=== PATIENT | male | born 1970 | race Caucasian/White ===

== ENCOUNTER 2021-12-28 16:45 | Outpatient (RCR) | payer OTHER, SELFPAY ==
--- NOTE | 2021-11-09 16:00 | PT.OPPOC ---
Physical, Occupational & Speech Therapy At [facility] Current Diagnoses Dizziness and giddiness (11/09/21) Visit Care Team Role Provider Type Dean Alves DO Family Provider Non-Staff Primary Care Provider Specialty: Family Practice Address: [address] [place] [address], [id number] Email: Jonas John MD Attending Provider Physician Referring Provider Specialty: Ear, Nose, Throat Address: [address] [place] [address], [id number] Email: [email or web address] Plan Of Care PT-OP-T Assessment and Plan Start: 11/09/21 17:32 Freq: Status: Active Protocol: Document 11/09/21 15:15 DCW (Rec: 11/10/21 09:41 DCW [id number]) Physical Therapy Assessment Rehab Potential Rehabilitation Potential Fair Evaluation Complexity Number of Personal Factors/Comorbidities 1-2 Number of Body Systems Impaired 4 or More Clinical Presentation at Evaluation Unstable Impairments Impairments Balance,Functional Activities, Functional Mobility,Gait, Vestibular Goals Two Impairment Pt experiences a six line degradation with DVA testing Professional Development Instructor Goal (LTG) Pt to exhibit at most a three line degradation in DVA testing to demonstrate improvement with VOR. LTG Duration 01/09/22 One Impairment Pt does not have an appropriate home exercise program Short Term Goal (STG) Pt to be independent and compliant with an appropriate HEP STG Duration 12/10/21 Assessment Summary Assessment Pt presents with a generalized vestibular dysfunction which is difficult to diagnose at this time. Per his recent VNG, exhibits nonspecific central and peripheral findings. Pt clearly has increased reliance in visual input when attempting to balance, shows difficulty with balance both with eyes closed and with visual conflict. Pt exhibits a 6 line degradation during DVA testing, which shows decreased VOR. Subjective symptoms of spontaneous vertigo lasting hours to a full day over the course of multiple years is somewhat suggestive of Meniere's disease, however pt does not exhibit the expected hearing loss, does not appear to experience true vertigo, and has episodes much more frequently than expected for Meniere's. Due to central findings during VNG, pt should continue with plan to get appointment with neurologist. In the mean time, pt may benefit from some skilled vestibular rehabilitation in order to decrease VOR dysfunction. Physical Therapy Plan Frequency and Duration Frequency of Treatment 1-2x/week Duration of Treatment Two months Plan of Care Start Date 11/09/21 Plan of Care End Date 01/09/22 Therapeutic Interventions Therapeutic Interventions Balance Training,Coordination Training,Home Exercise Program ,Manual Therapy,Neuromuscular Re-education,Patient/Caregiver Education,Self-Care/Home Management,Therapeutic Activities,Therapeutic Exercises,Vestibular Rehabilitation Next Visit Focus/Plan Next Note Type Treatment Note Next Visit Plan VOR training, vestibular challenges during static standing and gait Plan of Care Dates Plan of Care Start Date 11/09/21 Plan of Care End Date 01/09/22 Electronically Signed by: John Squires, PT 11/10/21 0945 If you are in agreement with this Plan of Care, please return a signed and dated copy. I have reviewed this Plan of Care and certify that the skilled therapy services above are required to meet the patient?s needs. Physician Signature Date Printed Name and Credentials Clinical Instructor Signature Printed Name and Credentials
--- NOTE | 2021-11-09 16:00 | PT.OIE ---
Current Diagnoses Dizziness and giddiness (11/09/21) Visit Care Team Role Provider Type Dean Alves DO Family Provider Non-Staff Primary Care Provider Specialty: Family Practice Address: [address] [place] [address], [id number] Email: Jonas John MD Attending Provider Physician Referring Provider Specialty: Ear, Nose, Throat Address: [address] [place] [address], [id number] Email: [email or web address] Physical Therapy Initial Evaluation PT-OP-A Visit Information Start: 11/09/21 17:32 Freq: Status: Active Protocol: Document 11/09/21 15:15 DCW (Rec: 11/09/21 17:58 DCW [id number]) Out-Patient Physical Therapy Visit Information Visit Information Visit Type Initial Evaluation Visit Start Time 15:15 Visit Stop Time 16:00 Total Visit Minutes 45 Visit Number 1 Number of SONAR WATCHSTANDER Visits 0 Evaluation Information Evaluation Date 11/09/21 PT-OP-B Current Condition Start: 11/09/21 17:32 Freq: Status: Active Protocol: Document 11/09/21 15:15 DCW (Rec: 11/09/21 17:58 DCW [id number]) Current Condition History of Current Condition Onset Date 10+ year history Current Complaints spontaneous episodes of imbalance, unsteadiness, nausea History of Current Condition Pt is a 51 year old male presenting with a 10+ year history of spontaneous episodes of imbalance, unsteadiness, and nausea. 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 Notes he believes initial episode lasted multiple days. This has continued, with pt noting that is has been more frequent over the past five years. Episodes vary in severity, lasting anywhere from 15-20 minutes to a full day of feeling completely unable to function. Admits there does not seem to be any clear trigger for the episodes, which occur probably 1-2x/week . Pt does not notice any change in hearing during an episode, does experience constant tinitus. Pt describes the symptoms as he feels like I'm moving back and forth , or maybe like a hangover. Pt did have an VNG performed , which unfortunately showed nonspecific central and peripheral findings. Pt was referred for both vestibular rehabilitation to hopefully assist with peripheral findings, and a referral for neurology, to address central findings. Prior Treatments and Tests VN08/18/21: SUMMARY OF FINDINGS: Abnormal VNG. Peripheral and central findings. Non-localizing findings. Unsteadiness. per Jeevan Kaur Audiogram 05/25/21: FINDINGS: Bilateral sensorineural hearing loss. Noise notch at 4000 Hz bilaterally. Excellent word recognition scores bilaterally . Normal middle ear function bilaterally. per Leticia Garvey Au.D. For further breakdown of results, please see Forms/ Cards Treatment Goals Patient/Caregiver Goals Decrease frequency of episodes of unsteadiness PT-OP-C Subjective Start: 11/09/21 17:32 Freq: Status: Active Protocol: Document 11/09/21 15:15 DCW (Rec: 11/09/21 17:58 DCW [id number]) OP-PT Subjective Patient Comments Patient Comments I've noticed my balance is worse if my eyes are closed, like if I'm in the shower and go to rinse off my hair. It's never bad enough that I fall, but it's worse. Patient Reported Progress Worse PT-OP-O Vestibular Start: 11/09/21 17:32 Freq: Status: Active Protocol: Document 11/09/21 15:15 DCW (Rec: 11/09/21 17:58 DCW [id number]) Vestibular Assessment Visual Testing Cover/Uncover Test WNL Yadiel String Test WNL Convergence Test WNL DVA (Line Degradation) 6 Vestibular Function Tests Fukuda Test 30? rotation R CTSIB Position 1 30 seconds CTSIB Position 2 30 seconds CTSIB Position 3 30 seconds CTSIB Position 4 30 seconds CTSIB Position 5 30 seconds - severe sway CTSIB Position 6 30 seconds - severe sway PT-OP-Q Treatments Start: 11/09/21 17:32 Freq: Status: Active Protocol: Document 11/09/21 15:15 DCW (Rec: 11/09/21 17:58 DCW [id number]) Neuro Re-Education Treatment Vestibular Rehabilitation Corrective Saccades Details eyes, then head to targets Speed as tolerated Position seated X2 Viewing Details Target and head moving in opposite directions Speed as tolerated Position seated X1 Viewing Details Static target, head moving Speed as tolerated Position seated VOR Retraining Details Head and target move together Speed as tolerated Position seated PT-OP-T Assessment and Plan Start: 11/09/21 17:32 Freq: Status: Active Protocol: Document 11/09/21 15:15 DCW (Rec: 11/10/21 09:41 DCW [id number]) Physical Therapy Assessment Rehab Potential Rehabilitation Potential Fair Evaluation Complexity Number of Personal Factors/Comorbidities 1-2 Number of Body Systems Impaired 4 or More Clinical Presentation at Evaluation Unstable Impairments Impairments Balance,Functional Activities, Functional Mobility,Gait, Vestibular Goals Two Impairment Pt experiences a six line degradation with DVA testing Chcf Goal (LTG) Pt to exhibit at most a three line degradation in DVA testing to demonstrate improvement with VOR. LTG Duration 01/09/22 One Impairment Pt does not have an appropriate home exercise program Short Term Goal (STG) Pt to be independent and compliant with an appropriate HEP STG Duration 12/10/21 Assessment Summary Assessment Pt presents with a generalized vestibular dysfunction which is difficult to diagnose at this time. Per his recent VNG, exhibits nonspecific central and peripheral findings. Pt clearly has increased reliance in visual input when attempting to balance, shows difficulty with balance both with eyes closed and with visual conflict. Pt exhibits a 6 line degradation during DVA testing, which shows decreased VOR. Subjective symptoms of spontaneous vertigo lasting hours to a full day over the course of multiple years is somewhat suggestive of Meniere's disease, however pt does not exhibit the expected hearing loss, does not appear to experience true vertigo, and has episodes much more frequently than expected for Meniere's. Due to central findings during VNG, pt should continue with plan to get appointment with neurologist. In the mean time, pt may benefit from some skilled vestibular rehabilitation in order to decrease VOR dysfunction. Physical Therapy Plan Frequency and Duration Frequency of Treatment 1-2x/week Duration of Treatment Two months Plan of Care Start Date 11/09/21 Plan of Care End Date 01/09/22 Therapeutic Interventions Therapeutic Interventions Balance Training,Coordination Training,Home Exercise Program ,Manual Therapy,Neuromuscular Re-education,Patient/Caregiver Education,Self-Care/Home Management,Therapeutic Activities,Therapeutic Exercises,Vestibular Rehabilitation Next Visit Focus/Plan Next Note Type Treatment Note Next Visit Plan VOR training, vestibular challenges during static standing and gait
--- NOTE | 2021-11-12 16:12 | PT.OTN ---
Current Diagnoses Dizziness and giddiness (11/12/21) Physical Therapy Treatment Note PT-OP-A Visit Information Start: 11/09/21 17:32 Freq: Status: Active Protocol: Document 11/12/21 14:35 AMB (Rec: 11/12/21 15:07 AMB [id number]) Out-Patient Physical Therapy Visit Information Visit Information Visit Type Treatment Note Visit Start Time 14:30 Visit Stop Time 15:15 Total Visit Minutes 45 Visit Number 2 PT-OP-B Current Condition Start: 11/09/21 17:32 Freq: Status: Active Protocol: Document 11/09/21 15:15 DCW (Rec: 11/09/21 17:58 DCW [id number]) Current Condition History of Current Condition Onset Date 10+ year history Current Complaints spontaneous episodes of imbalance, unsteadiness, nausea History of Current Condition Pt is a 51 year old male presenting with a 10+ year history of spontaneous episodes of imbalance, unsteadiness, and nausea. 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 Notes he believes initial episode lasted multiple days. This has continued, with pt noting that is has been more frequent over the past five years. Episodes vary in severity, lasting anywhere from 15-20 minutes to a full day of feeling completely unable to function. Admits there does not seem to be any clear trigger for the episodes, which occur probably 1-2x/week . Pt does not notice any change in hearing during an episode, does experience constant tinitus. Pt describes the symptoms as he feels like I'm moving back and forth , or maybe like a hangover. Pt did have an VNG performed , which unfortunately showed nonspecific central and peripheral findings. Pt was referred for both vestibular rehabilitation to hopefully assist with peripheral findings, and a referral for neurology, to address central findings. Prior Treatments and Tests VN08/18/21: SUMMARY OF FINDINGS: Abnormal VNG. Peripheral and central findings. Non-localizing findings. Unsteadiness. per Jeevan Kaur Audiogram 05/25/21: FINDINGS: Bilateral sensorineural hearing loss. Noise notch at 4000 Hz bilaterally. Excellent word recognition scores bilaterally . Normal middle ear function bilaterally. per Leticia Garvey Au.D. For further breakdown of results, please see Forms/ Cards Treatment Goals Patient/Caregiver Goals Decrease frequency of episodes of unsteadiness PT-OP-C Subjective Start: 11/09/21 17:32 Freq: Status: Active Protocol: Document 11/12/21 14:35 AMB (Rec: 11/12/21 15:07 AMB [id number]) OP-PT Subjective Patient Comments Patient Comments Haven't had any bad days in the last week. Hasn't really done his HEP yet. PT-OP-O Vestibular Start: 11/09/21 17:32 Freq: Status: Active Protocol: Document 11/09/21 15:15 DCW (Rec: 11/09/21 17:58 DCW [id number]) Vestibular Assessment Visual Testing Cover/Uncover Test WNL Yadiel String Test WNL Convergence Test WNL DVA (Line Degradation) 6 Vestibular Function Tests Fukuda Test 30? rotation R CTSIB Position 1 30 seconds CTSIB Position 2 30 seconds CTSIB Position 3 30 seconds CTSIB Position 4 30 seconds CTSIB Position 5 30 seconds - severe sway CTSIB Position 6 30 seconds - severe sway PT-OP-Q Treatments Start: 11/09/21 17:32 Freq: Status: Active Protocol: Document 11/12/21 14:35 AMB (Rec: 11/12/21 15:07 AMB [id number]) Neuro Re-Education Treatment Balance Activities foam Details with head turns Eyes open Comments then with eyes closed no head turns Vestibular Rehabilitation Corrective Saccades Details eyes, then head to targets Speed as tolerated Position standing X2 Viewing Details Target and head moving in opposite directions Speed as tolerated Position standing X1 Viewing Details Static target, head moving Speed as tolerated Position standing VOR Retraining Details Head and target move together Speed as tolerated Position standing PT-OP-T Assessment and Plan Start: 11/09/21 17:32 Freq: Status: Active Protocol: Document 11/12/21 14:35 AMB (Rec: 11/12/21 16:12 AMB [id number]) Physical Therapy Assessment Assessment Summary Assessment Encouraged Bryan in his HEP over the next month while he is waiting to get into therapy , encouraged him in VOR training especially, did get metronome and while he tolerated 45bpm well, 60 was quite challenging Physical Therapy Plan Next Visit Focus/Plan Next Note Type Treatment Note Next Visit Plan VOR training, vestibular challenges during static standing and gait
--- NOTE | 2021-12-14 17:38 | PT.OTN ---
Current Diagnoses Dizziness and giddiness (12/14/21) Physical Therapy Treatment Note PT-OP-A Visit Information Start: 11/09/21 17:32 Freq: Status: Active Protocol: Document 12/14/21 16:45 DCW (Rec: 12/14/21 17:38 DCW [id number]) Out-Patient Physical Therapy Visit Information Visit Information Visit Type Treatment Note Visit Start Time 16:45 Visit Stop Time 17:30 Total Visit Minutes 45 Visit Number 3 Number of PRINTING SALES REPRESENTATIVE Visits 0 Evaluation Information Evaluation Date 11/09/21 PT-OP-B Current Condition Start: 11/09/21 17:32 Freq: Status: Active Protocol: Document 11/09/21 15:15 DCW (Rec: 11/09/21 17:58 DCW [id number]) Current Condition History of Current Condition Onset Date 10+ year history Current Complaints spontaneous episodes of imbalance, unsteadiness, nausea History of Current Condition Pt is a 51 year old male presenting with a 10+ year history of spontaneous episodes of imbalance, unsteadiness, and nausea. 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 Notes he believes initial episode lasted multiple days. This has continued, with pt noting that is has been more frequent over the past five years. Episodes vary in severity, lasting anywhere from 15-20 minutes to a full day of feeling completely unable to function. Admits there does not seem to be any clear trigger for the episodes, which occur probably 1-2x/week . Pt does not notice any change in hearing during an episode, does experience constant tinitus. Pt describes the symptoms as he feels like I'm moving back and forth , or maybe like a hangover. Pt did have an VNG performed , which unfortunately showed nonspecific central and peripheral findings. Pt was referred for both vestibular rehabilitation to hopefully assist with peripheral findings, and a referral for neurology, to address central findings. Prior Treatments and Tests VN08/18/21: SUMMARY OF FINDINGS: Abnormal VNG. Peripheral and central findings. Non-localizing findings. Unsteadiness. per Jeevan Kaur Audiogram 05/25/21: FINDINGS: Bilateral sensorineural hearing loss. Noise notch at 4000 Hz bilaterally. Excellent word recognition scores bilaterally . Normal middle ear function bilaterally. per Leticia Garvey Au.D. For further breakdown of results, please see Forms/ Cards Treatment Goals Patient/Caregiver Goals Decrease frequency of episodes of unsteadiness PT-OP-C Subjective Start: 11/09/21 17:32 Freq: Status: Active Protocol: Document 12/14/21 16:45 DCW (Rec: 12/14/21 17:38 DCW [id number]) OP-PT Subjective Patient Comments Patient Comments I've only really had one bad day since my last one. PT-OP-O Vestibular Start: 11/09/21 17:32 Freq: Status: Active Protocol: Document 11/09/21 15:15 DCW (Rec: 11/09/21 17:58 DCW [id number]) Vestibular Assessment Visual Testing Cover/Uncover Test WNL Yadiel String Test WNL Convergence Test WNL DVA (Line Degradation) 6 Vestibular Function Tests Fukuda Test 30? rotation R CTSIB Position 1 30 seconds CTSIB Position 2 30 seconds CTSIB Position 3 30 seconds CTSIB Position 4 30 seconds CTSIB Position 5 30 seconds - severe sway CTSIB Position 6 30 seconds - severe sway PT-OP-Q Treatments Start: 11/09/21 17:32 Freq: Status: Active Protocol: Document 12/14/21 16:45 DCW (Rec: 12/14/21 17:38 DCW [id number]) Gym Equipment Shuttle Balance Red Comments WBOS /c X1 Staggered EO/EC Neuro Re-Education Treatment Balance Activities BOSU Details BOSU stance /c chain reading Amd /c Head turns Details Horizontal and vertical head turns with amb Comments Metronome 60->90 bpm [place] and head turn Details Three-steps, bow, and head turn Vestibular Rehabilitation Corrective Saccades Details eyes, then head to targets Speed as tolerated Position Tandem X2 Viewing Details Target and head moving in opposite directions Speed as tolerated Position standing X1 Viewing Details Static target, head moving Speed as tolerated Position standing PT-OP-T Assessment and Plan Start: 11/09/21 17:32 Freq: Status: Active Protocol: Document 12/14/21 16:45 DCW (Rec: 12/14/21 17:38 DCW [id number]) Physical Therapy Assessment Impairments Impairments Balance,Functional Activities, Functional Mobility,Gait, Vestibular Goals Two Impairment Pt experiences a six line degradation with DVA testing Usp Goal (LTG) Pt to exhibit at most a three line degradation in DVA testing to demonstrate improvement with VOR. LTG Duration 01/09/22 One Impairment Pt does not have an appropriate home exercise program Short Term Goal (STG) Pt to be independent and compliant with an appropriate HEP STG Duration 12/10/21 Assessment Summary Assessment Pt showed fairly good tolerance with most vestibular therapy today, had increased struggle with horizontal head turns, especially with >60 BPM . Physical Therapy Plan Frequency and Duration Frequency of Treatment 1-2x/week Plan of Care Start Date 11/09/21 Plan of Care End Date 01/09/22 Therapeutic Interventions Therapeutic Interventions Balance Training,Coordination Training,Home Exercise Program ,Manual Therapy,Neuromuscular Re-education,Patient/Caregiver Education,Self-Care/Home Management,Therapeutic Activities,Therapeutic Exercises,Vestibular Rehabilitation Next Visit Focus/Plan Next Note Type Treatment Note Next Visit Plan VOR training, vestibular challenges during static standing and gait
--- NOTE | 2021-12-16 17:33 | PT.OTN ---
Current Diagnoses Dizziness and giddiness (12/16/21) Physical Therapy Treatment Note PT-OP-A Visit Information Start: 11/09/21 17:32 Freq: Status: Active Protocol: Document 12/16/21 16:45 DCW (Rec: 12/16/21 17:32 DCW [id number]) Out-Patient Physical Therapy Visit Information Visit Information Visit Type Treatment Note Visit Start Time 16:45 Visit Stop Time 17:30 Total Visit Minutes 45 Visit Number 4 Number of PARTS REMOVER Visits 0 Evaluation Information Evaluation Date 11/09/21 PT-OP-B Current Condition Start: 11/09/21 17:32 Freq: Status: Active Protocol: Document 11/09/21 15:15 DCW (Rec: 11/09/21 17:58 DCW [id number]) Current Condition History of Current Condition Onset Date 10+ year history Current Complaints spontaneous episodes of imbalance, unsteadiness, nausea History of Current Condition Pt is a 51 year old male presenting with a 10+ year history of spontaneous episodes of imbalance, unsteadiness, and nausea. 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 Notes he believes initial episode lasted multiple days. This has continued, with pt noting that is has been more frequent over the past five years. Episodes vary in severity, lasting anywhere from 15-20 minutes to a full day of feeling completely unable to function. Admits there does not seem to be any clear trigger for the episodes, which occur probably 1-2x/week . Pt does not notice any change in hearing during an episode, does experience constant tinitus. Pt describes the symptoms as he feels like I'm moving back and forth , or maybe like a hangover. Pt did have an VNG performed , which unfortunately showed nonspecific central and peripheral findings. Pt was referred for both vestibular rehabilitation to hopefully assist with peripheral findings, and a referral for neurology, to address central findings. Prior Treatments and Tests VN08/18/21: SUMMARY OF FINDINGS: Abnormal VNG. Peripheral and central findings. Non-localizing findings. Unsteadiness. per Jeevan Kaur Audiogram 05/25/21: FINDINGS: Bilateral sensorineural hearing loss. Noise notch at 4000 Hz bilaterally. Excellent word recognition scores bilaterally . Normal middle ear function bilaterally. per Leticia Garvey Au.D. For further breakdown of results, please see Forms/ Cards Treatment Goals Patient/Caregiver Goals Decrease frequency of episodes of unsteadiness PT-OP-C Subjective Start: 11/09/21 17:32 Freq: Status: Active Protocol: Document 12/16/21 16:45 DCW (Rec: 12/16/21 17:33 DCW [id number]) OP-PT Subjective Patient Comments Patient Comments Pt notes he felt a little woozy following last visit, but was better by the time he got home. PT-OP-O Vestibular Start: 11/09/21 17:32 Freq: Status: Active Protocol: Document 11/09/21 15:15 DCW (Rec: 11/09/21 17:58 DCW [id number]) Vestibular Assessment Visual Testing Cover/Uncover Test WNL Yadiel String Test WNL Convergence Test WNL DVA (Line Degradation) 6 Vestibular Function Tests Fukuda Test 30? rotation R CTSIB Position 1 30 seconds CTSIB Position 2 30 seconds CTSIB Position 3 30 seconds CTSIB Position 4 30 seconds CTSIB Position 5 30 seconds - severe sway CTSIB Position 6 30 seconds - severe sway PT-OP-Q Treatments Start: 11/09/21 17:32 Freq: Status: Active Protocol: Document 12/16/21 16:45 DCW (Rec: 12/16/21 17:32 DCW [id number]) Gym Equipment Shuttle Balance Red Comments WBOS /c X1 (120 bpm), EO/EC Staggered ball toss Lateral weight shift Neuro Re-Education Treatment Balance Activities EC Turning Details Turning to target with eyes closed. BOSU Details BOSU stance Comments Blue: BARAKAT Chart Black: Eyes Closed Amd /c Head turns Details Horizontal and vertical head turns with amb Comments Metronome 90 bpm [place] and head turn Details Three-steps, bow, and head turn foam Details Horizontal/vertical head turns Surface Large blue air pad PT-OP-T Assessment and Plan Start: 11/09/21 17:32 Freq: Status: Active Protocol: Document 12/16/21 16:45 DCW (Rec: 12/16/21 17:32 DCW [id number]) Physical Therapy Assessment Impairments Impairments Balance,Functional Activities, Functional Mobility,Gait, Vestibular Goals Two Impairment Pt experiences a six line degradation with DVA testing Beater Out Goal (LTG) Pt to exhibit at most a three line degradation in DVA testing to demonstrate improvement with VOR. LTG Duration 01/09/22 One Impairment Pt does not have an appropriate home exercise program Short Term Goal (STG) Pt to be independent and compliant with an appropriate HEP STG Duration 12/10/21 Assessment Summary Assessment Pt did well with balance challenges without head turns, struggled more with head turns and eyes closed. Involvement of vestibular challenges greatly increases pt's difficulty level. Physical Therapy Plan Frequency and Duration Frequency of Treatment 1-2x/week Plan of Care Start Date 11/09/21 Plan of Care End Date 01/09/22 Therapeutic Interventions Therapeutic Interventions Balance Training,Coordination Training,Home Exercise Program ,Manual Therapy,Neuromuscular Re-education,Patient/Caregiver Education,Self-Care/Home Management,Therapeutic Activities,Therapeutic Exercises,Vestibular Rehabilitation Next Visit Focus/Plan Next Note Type Treatment Note Next Visit Plan VOR training, vestibular challenges during static standing and gait
--- NOTE | 2021-12-21 17:33 | PT.OTN ---
Current Diagnoses Dizziness and giddiness (12/21/21) Physical Therapy Treatment Note PT-OP-A Visit Information Start: 11/09/21 17:32 Freq: Status: Active Protocol: Document 12/21/21 16:45 DCW (Rec: 12/21/21 17:33 DCW [id number]) Out-Patient Physical Therapy Visit Information Visit Information Visit Type Treatment Note Visit Start Time 16:45 Visit Stop Time 17:30 Total Visit Minutes 45 Visit Number 5 Number of SERVER PROGRAMMER Visits 0 Evaluation Information Evaluation Date 11/09/21 PT-OP-B Current Condition Start: 11/09/21 17:32 Freq: Status: Active Protocol: Document 11/09/21 15:15 DCW (Rec: 11/09/21 17:58 DCW [id number]) Current Condition History of Current Condition Onset Date 10+ year history Current Complaints spontaneous episodes of imbalance, unsteadiness, nausea History of Current Condition Pt is a 51 year old male presenting with a 10+ year history of spontaneous episodes of imbalance, unsteadiness, and nausea. 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 Notes he believes initial episode lasted multiple days. This has continued, with pt noting that is has been more frequent over the past five years. Episodes vary in severity, lasting anywhere from 15-20 minutes to a full day of feeling completely unable to function. Admits there does not seem to be any clear trigger for the episodes, which occur probably 1-2x/week . Pt does not notice any change in hearing during an episode, does experience constant tinitus. Pt describes the symptoms as he feels like I'm moving back and forth , or maybe like a hangover. Pt did have an VNG performed , which unfortunately showed nonspecific central and peripheral findings. Pt was referred for both vestibular rehabilitation to hopefully assist with peripheral findings, and a referral for neurology, to address central findings. Prior Treatments and Tests VN08/18/21: SUMMARY OF FINDINGS: Abnormal VNG. Peripheral and central findings. Non-localizing findings. Unsteadiness. per Jeevan Kaur Audiogram 05/25/21: FINDINGS: Bilateral sensorineural hearing loss. Noise notch at 4000 Hz bilaterally. Excellent word recognition scores bilaterally . Normal middle ear function bilaterally. per Leticia Garvey Au.D. For further breakdown of results, please see Forms/ Cards Treatment Goals Patient/Caregiver Goals Decrease frequency of episodes of unsteadiness PT-OP-C Subjective Start: 11/09/21 17:32 Freq: Status: Active Protocol: Document 12/21/21 16:45 DCW (Rec: 12/21/21 17:33 DCW [id number]) OP-PT Subjective Patient Comments Patient Comments Pt feeling fairly good recently, felt a little weird this afternoon, admits that it wasn't as bad as one of his bad days, but still just felt weird. PT-OP-O Vestibular Start: 11/09/21 17:32 Freq: Status: Active Protocol: Document 11/09/21 15:15 DCW (Rec: 11/09/21 17:58 DCW [id number]) Vestibular Assessment Visual Testing Cover/Uncover Test WNL Yadiel String Test WNL Convergence Test WNL DVA (Line Degradation) 6 Vestibular Function Tests Fukuda Test 30? rotation R CTSIB Position 1 30 seconds CTSIB Position 2 30 seconds CTSIB Position 3 30 seconds CTSIB Position 4 30 seconds CTSIB Position 5 30 seconds - severe sway CTSIB Position 6 30 seconds - severe sway PT-OP-Q Treatments Start: 11/09/21 17:32 Freq: Status: Active Protocol: Document 12/21/21 16:45 DCW (Rec: 12/21/21 17:33 DCW [id number]) Gym Equipment Shuttle Balance Red Comments WBOS /c X1 (120 bpm), EO/EC Staggered ball toss Lateral weight shift Neuro Re-Education Treatment Balance Activities BOSU Details BOSU stance Comments Blue: BARAKAT Chart, Chain reading Black: Laser maze Amd /c Head turns Details Horizontal and turns /c tandem amb Comments Metronome 90->60 bpm PT-OP-T Assessment and Plan Start: 11/09/21 17:32 Freq: Status: Active Protocol: Document 12/21/21 16:45 DCW (Rec: 12/21/21 17:33 DCW [id number]) Physical Therapy Assessment Impairments Impairments Balance,Functional Activities, Functional Mobility,Gait, Vestibular Goals Two Impairment Pt experiences a six line degradation with DVA testing Backer Up Goal (LTG) Pt to exhibit at most a three line degradation in DVA testing to demonstrate improvement with VOR. LTG Duration 01/09/22 One Impairment Pt does not have an appropriate home exercise program Short Term Goal (STG) Pt to be independent and compliant with an appropriate HEP STG Duration 12/10/21 Assessment Summary Assessment Pt doing well in some areas, still struggling in others. Pt had fairly significant difficulty with tandem ambulation, especially when adding horizontal head turns. Showed improvement with chain reading and BARAKAT chart while on BOSU. Physical Therapy Plan Frequency and Duration Frequency of Treatment 1-2x/week Plan of Care Start Date 11/09/21 Plan of Care End Date 01/09/22 Therapeutic Interventions Therapeutic Interventions Balance Training,Coordination Training,Home Exercise Program ,Manual Therapy,Neuromuscular Re-education,Patient/Caregiver Education,Self-Care/Home Management,Therapeutic Activities,Therapeutic Exercises,Vestibular Rehabilitation Next Visit Focus/Plan Next Note Type Treatment Note Next Visit Plan VOR training, vestibular challenges during static standing and gait
--- NOTE | 2021-12-23 17:41 | PT.OTN ---
Current Diagnoses Dizziness and giddiness (12/23/21) Physical Therapy Treatment Note PT-OP-A Visit Information Start: 11/09/21 17:32 Freq: Status: Active Protocol: Document 12/23/21 16:50 DCW (Rec: 12/23/21 17:41 DCW [id number]) Out-Patient Physical Therapy Visit Information Visit Information Visit Type Treatment Note Visit Start Time 16:50 Visit Stop Time 17:30 Total Visit Minutes 40 Visit Number 6 Number of PHARMACEUTICAL OFFICER Visits 0 Evaluation Information Evaluation Date 11/09/21 PT-OP-B Current Condition Start: 11/09/21 17:32 Freq: Status: Active Protocol: Document 11/09/21 15:15 DCW (Rec: 11/09/21 17:58 DCW [id number]) Current Condition History of Current Condition Onset Date 10+ year history Current Complaints spontaneous episodes of imbalance, unsteadiness, nausea History of Current Condition Pt is a 51 year old male presenting with a 10+ year history of spontaneous episodes of imbalance, unsteadiness, and nausea. 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 Notes he believes initial episode lasted multiple days. This has continued, with pt noting that is has been more frequent over the past five years. Episodes vary in severity, lasting anywhere from 15-20 minutes to a full day of feeling completely unable to function. Admits there does not seem to be any clear trigger for the episodes, which occur probably 1-2x/week . Pt does not notice any change in hearing during an episode, does experience constant tinitus. Pt describes the symptoms as he feels like I'm moving back and forth , or maybe like a hangover. Pt did have an VNG performed , which unfortunately showed nonspecific central and peripheral findings. Pt was referred for both vestibular rehabilitation to hopefully assist with peripheral findings, and a referral for neurology, to address central findings. Prior Treatments and Tests VN08/18/21: SUMMARY OF FINDINGS: Abnormal VNG. Peripheral and central findings. Non-localizing findings. Unsteadiness. per Jeevan Kaur Audiogram 05/25/21: FINDINGS: Bilateral sensorineural hearing loss. Noise notch at 4000 Hz bilaterally. Excellent word recognition scores bilaterally . Normal middle ear function bilaterally. per Leticia Garvey Au.D. For further breakdown of results, please see Forms/ Cards Treatment Goals Patient/Caregiver Goals Decrease frequency of episodes of unsteadiness PT-OP-C Subjective Start: 11/09/21 17:32 Freq: Status: Active Protocol: Document 12/23/21 16:50 DCW (Rec: 12/23/21 17:41 DCW [id number]) OP-PT Subjective Patient Comments Patient Comments Pt notes no real changes one way or another. PT-OP-O Vestibular Start: 11/09/21 17:32 Freq: Status: Active Protocol: Document 11/09/21 15:15 DCW (Rec: 11/09/21 17:58 DCW [id number]) Vestibular Assessment Visual Testing Cover/Uncover Test WNL Yadiel String Test WNL Convergence Test WNL DVA (Line Degradation) 6 Vestibular Function Tests Fukuda Test 30? rotation R CTSIB Position 1 30 seconds CTSIB Position 2 30 seconds CTSIB Position 3 30 seconds CTSIB Position 4 30 seconds CTSIB Position 5 30 seconds - severe sway CTSIB Position 6 30 seconds - severe sway PT-OP-Q Treatments Start: 11/09/21 17:32 Freq: Status: Active Protocol: Document 12/23/21 16:50 DCW (Rec: 12/23/21 17:41 DCW [id number]) Gym Equipment Shuttle Balance Red Comments WBOS /c X1 (90 bpm), EO/EC Staggered ball toss Lateral weight shift Neuro Re-Education Treatment Balance Activities Tandem Ambulation Details Tandem Ambulation Amd /c Head turns Details Horizontal and turns /c amb Comments Metronome 60 bpm [place] and head turn Details Three-steps, bow, and head turn foam Details Horizontal/vertical head turns Surface Large blue air pad PT-OP-T Assessment and Plan Start: 11/09/21 17:32 Freq: Status: Active Protocol: Document 12/23/21 16:50 DCW (Rec: 12/23/21 17:41 DCW [id number]) Physical Therapy Assessment Impairments Impairments Balance,Functional Activities, Functional Mobility,Gait, Vestibular Goals Two Impairment Pt experiences a six line degradation with DVA testing Mcc Goal (LTG) Pt to exhibit at most a three line degradation in DVA testing to demonstrate improvement with VOR. LTG Duration 01/09/22 One Impairment Pt does not have an appropriate home exercise program Short Term Goal (STG) Pt to be independent and compliant with an appropriate HEP STG Duration 12/10/21 Assessment Summary Assessment Pt showing good progress today , much more stability with tandem ambulation and ambulation with head turns. Re -tested CTSIB, and pt had no difficulty in positions V and Physical Therapy Plan Frequency and Duration Frequency of Treatment 1-2x/week Plan of Care Start Date 11/09/21 Plan of Care End Date 01/09/22 Therapeutic Interventions Therapeutic Interventions Balance Training,Coordination Training,Home Exercise Program ,Manual Therapy,Neuromuscular Re-education,Patient/Caregiver Education,Self-Care/Home Management,Therapeutic Activities,Therapeutic Exercises,Vestibular Rehabilitation Next Visit Focus/Plan Next Note Type Treatment Note Next Visit Plan VOR training, vestibular challenges during static standing and gait
--- NOTE | 2021-12-28 17:30 | PT.OTN ---
Current Diagnoses Dizziness and giddiness (12/28/21) Physical Therapy Treatment Note PT-OP-A Visit Information Start: 11/09/21 17:32 Freq: Status: Active Protocol: Document 12/28/21 16:45 DCW (Rec: 12/28/21 17:30 DCW [id number]) Out-Patient Physical Therapy Visit Information Visit Information Visit Type Treatment Note Visit Start Time 16:45 Visit Stop Time 17:30 Total Visit Minutes 45 Visit Number 7 Number of PROCESSING OPERATOR Visits 0 Evaluation Information Evaluation Date 11/09/21 PT-OP-B Current Condition Start: 11/09/21 17:32 Freq: Status: Active Protocol: Document 11/09/21 15:15 DCW (Rec: 11/09/21 17:58 DCW [id number]) Current Condition History of Current Condition Onset Date 10+ year history Current Complaints spontaneous episodes of imbalance, unsteadiness, nausea History of Current Condition Pt is a 51 year old male presenting with a 10+ year history of spontaneous episodes of imbalance, unsteadiness, and nausea. 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 Notes he believes initial episode lasted multiple days. This has continued, with pt noting that is has been more frequent over the past five years. Episodes vary in severity, lasting anywhere from 15-20 minutes to a full day of feeling completely unable to function. Admits there does not seem to be any clear trigger for the episodes, which occur probably 1-2x/week . Pt does not notice any change in hearing during an episode, does experience constant tinitus. Pt describes the symptoms as he feels like I'm moving back and forth , or maybe like a hangover. Pt did have an VNG performed , which unfortunately showed nonspecific central and peripheral findings. Pt was referred for both vestibular rehabilitation to hopefully assist with peripheral findings, and a referral for neurology, to address central findings. Prior Treatments and Tests VN08/18/21: SUMMARY OF FINDINGS: Abnormal VNG. Peripheral and central findings. Non-localizing findings. Unsteadiness. per Jeevan Kaur Audiogram 05/25/21: FINDINGS: Bilateral sensorineural hearing loss. Noise notch at 4000 Hz bilaterally. Excellent word recognition scores bilaterally . Normal middle ear function bilaterally. per Leticia Garvey Au.D. For further breakdown of results, please see Forms/ Cards Treatment Goals Patient/Caregiver Goals Decrease frequency of episodes of unsteadiness PT-OP-C Subjective Start: 11/09/21 17:32 Freq: Status: Active Protocol: Document 12/28/21 16:45 DCW (Rec: 12/28/21 17:30 DCW [id number]) OP-PT Subjective Patient Comments Patient Comments Since I've started here, I've really noticed more how bad my balance is overall. I notice it more now. PT-OP-O Vestibular Start: 11/09/21 17:32 Freq: Status: Active Protocol: Document 11/09/21 15:15 DCW (Rec: 11/09/21 17:58 DCW [id number]) Vestibular Assessment Visual Testing Cover/Uncover Test WNL Yadiel String Test WNL Convergence Test WNL DVA (Line Degradation) 6 Vestibular Function Tests Fukuda Test 30? rotation R CTSIB Position 1 30 seconds CTSIB Position 2 30 seconds CTSIB Position 3 30 seconds CTSIB Position 4 30 seconds CTSIB Position 5 30 seconds - severe sway CTSIB Position 6 30 seconds - severe sway PT-OP-Q Treatments Start: 11/09/21 17:32 Freq: Status: Active Protocol: Document 12/28/21 16:45 DCW (Rec: 12/28/21 17:30 DCW [id number]) Gym Equipment Shuttle Balance Red Comments WBOS /c X1 (120 bpm), EO/EC Staggered ball toss Lateral weight shift Neuro Re-Education Treatment Balance Activities Tandem Ambulation Details Tandem Ambulation [place] and head turn Details Three-steps, bow, and head turn PT-OP-T Assessment and Plan Start: 11/09/21 17:32 Freq: Status: Active Protocol: Document 12/28/21 16:45 DCW (Rec: 12/28/21 17:30 DCW [id number]) Physical Therapy Assessment Impairments Impairments Balance,Functional Activities, Functional Mobility,Gait, Vestibular Goals Two Impairment Pt experiences a six line degradation with DVA testing Mandolin Repairer Goal (LTG) Pt to exhibit at most a three line degradation in DVA testing to demonstrate improvement with VOR. LTG Duration 01/09/22 One Impairment Pt does not have an appropriate home exercise program Short Term Goal (STG) Pt to be independent and compliant with an appropriate HEP STG Duration 12/10/21 Assessment Summary Assessment Pt feels comfortable with discharge at this time, doing well challenging balance at home, still waiting to get into Neuro for an assessment, currently has an appointment in February. Physical Therapy Plan Frequency and Duration Frequency of Treatment 1-2x/week Plan of Care Start Date 11/09/21 Plan of Care End Date 01/09/22 Therapeutic Interventions Therapeutic Interventions Balance Training,Coordination Training,Home Exercise Program ,Manual Therapy,Neuromuscular Re-education,Patient/Caregiver Education,Self-Care/Home Management,Therapeutic Activities,Therapeutic Exercises,Vestibular Rehabilitation Discharge Physical Therapy Discharge Reasons Patient Request Next Visit Focus/Plan Next Note Type Discharge Summary
== END 2021-12-29 12:25 | disposition home or self-care (01) ==
LOC: PHYS 16:45
PROVIDERS: Family Provider Student in an Organized Health Care Education/Training Program; PCP Student in an Organized Health Care Education/Training Program; Referring Provider Otolaryngology; Visit Provider Otolaryngology
DX: R42 Dizziness and giddiness (principal)
CPT/HCPCS: 97112; 97162

== ENCOUNTER → 2022-07-01 15:24 | Outpatient (CLI) | payer OTHER, SELFPAY ==
--- NOTE | 2022-07-01 | DI.US.S_ITS ---
PROCEDURE: US ABDOMEN COMPLETE INDICATIONS: Abnormal results of liver function studies TECHNIQUE: Real-time scanning was performed of the abdominal and retroperitoneal organs, with image documentation. COMPARISON: None. FINDINGS: Liver: Liver is normal in size and homogeneous in echotexture. Gallbladder: Sonolucent without evidence cholelithiasis, gallbladder wall thickening or pericholecystic fluid. No sonographic Francis sign. Biliary ducts: Intrahepatic bile ducts are non-dilated. Extrahepatic bile duct caliber measures 5 mm. Normal is 6-7 mm or less in diameter, or 10 mm or less post-cholecystectomy. Pancreas: Visualized portions of the pancreas are sonographically normal. Spleen: Spleen is normal in size and homogeneous in echotexture. Kidneys: Kidneys are normal in size and echotexture. Right kidney measures 12.0 cm long; left kidney measures 12.2 cm long. No hydronephrosis or nephrolithiasis. No solid masses. Aorta: Visualized aorta is normal in caliber at less than 3 cm. Iliacs: Proximal common iliac arteries are normal in caliber at less than 2.5 cm. IVC: Intrahepatic inferior vena cava is patent. Miscellaneous: No free abdominal fluid. IMPRESSION: Unremarkable abdominal ultrasound Approved by: Ilia Clement M.D. on 07/01/2022 at 20:27
== END ==
PROVIDERS: Family Provider Student in an Organized Health Care Education/Training Program; PCP Student in an Organized Health Care Education/Training Program; Referring Provider Internal Medicine; Visit Provider Internal Medicine
DX: R94.5 Abnormal results of liver function studies (principal)
CPT/HCPCS: 76700

== ENCOUNTER → 2023-09-14 07:07 | Outpatient (CLI) | payer OTHER, SELFPAY ==
--- NOTE | 2023-09-14 07:08 | DI.US.S_ITS ---
PROCEDURE: US ABDOMEN LIMITED INDICATIONS: GALLBLADDER / RUQ PAIN AFTER EATING TECHNIQUE: Real-time scanning was performed of the abdominal and retroperitoneal organs, with image documentation. COMPARISON: [facility], US, US ABDOMEN COMPLETE, 07/01/2022, 15:34. FINDINGS: Liver: Liver size is in the upper limits of normal and measures 17.7 cm in length. Heterogeneously increased liver parenchymal echotexture is seen. No discrete solid appearing hepatic lesion. Gallbladder: There is no gallstones. No gallbladder wall thickening or pericholecystic fluid. No sonographic Francis sign. Biliary ducts: Intrahepatic bile ducts are non-dilated. Extrahepatic bile duct caliber measures 2 mm. Normal is 6-7 mm or less in diameter, or 10 mm or less post-cholecystectomy. Pancreas: Visualized portions of the pancreas are sonographically normal. Miscellaneous: No free abdominal fluid. IMPRESSION: Borderline hepatomegaly and hepatic steatosis. No discrete hepatic lesion. Normal appearing gallbladder and pancreas. No biliary ductal dilatation. Dictated by: Derrek Hansen M.D. on 09/14/2023 at 11:08 Approved by: Derrek Hansen M.D. on 09/14/2023 at 11:12
== END ==
LOC: US 07:08
PROVIDERS: Family Provider Student in an Organized Health Care Education/Training Program; PCP Student in an Organized Health Care Education/Training Program; Referring Provider Family Medicine; Visit Provider Family Medicine
DX: R10.9 Unspecified abdominal pain (principal)
CPT/HCPCS: 76705